=== PATIENT | female | born 1930 | race Caucasian/White ===

== ENCOUNTER 2019-02-24 05:47 | Observation (INO) | payer MEDICARE ==
[~2019-02-24] VITALS: Ht 177.8 cm; Wt 65.5 kg
[2019-02-24] VITALS (14 sets, daily range): BP systolic 95–207; BP diastolic 39–94
[~2019-02-24 05:47] MED LIST: ATOR20TA PO; CALC-793 PO; CARB-86 PO; DONE10TA7 PO; FLEC50TA PO; FLO0.1T PO; LEVO100T PO; MAGN400C PO; MULT-1179 PO; RIVA20TA PO; [UNRECOGNIZED DRUG - CODE] TP
--- NOTE | 2019-02-24 06:11 | NUR ---
Dr. Meyer to bedside.
[2019-02-24 06:12] LABS: BASOPHILS # (AUTO) 0.1 X10'3 (0-0.2); EOSINOPHILS # (AUTO) 0.2 X10'3 (0-0.9); HEMATOCRIT 37.1 % (35.0-45.0); LYMPHOCYTES # (AUTO) 1.2 X10'3 (1.1-4.8); LYMPHOCYTES % (AUTO) 22.2 % (21-51); MEAN CORPUSCULAR HEMOGLOBIN 33.9 PG (27.0-31.0); MEAN CORPUSCULAR HGB CONC 35.2 g/dL (33.0-36.5); MEAN CORPUSCULAR VOLUME 96.4 FL (78-98); MEAN PLATELET VOLUME 7.4 FL (7.4-10.4); MONOCYTES # (AUTO) 0.4 X10'3 (0-0.9); MONOCYTES % (AUTO) 7.8 % (2-12); NEUTROPHILS # (AUTO) 3.5 X10'3 (1.8-7.7); PLATELET COUNT 156 X10'3 (140-440); RED BLOOD COUNT 3.85 X10'6 (4.20-5.60); RED CELL DISTRIBUTION WIDTH 12.6 % (11.5-14.5); WHITE BLOOD COUNT 5.3 X10'3 (4.5-11.0)
[2019-02-24] MEDS ORDERED: nitroGLYCERIN 0.4mg SUBLingual tab SL PRN ×3 (06:15→07:30)
[2019-02-24 06:22] LABS: ALANINE AMINOTRANSFERASE 11 U/L (12-78); ALBUMIN 3.6 G/DL (3.4-5.0); ALKALINE PHOSPHATASE 92 IU/L (46-116); ANION GAP 7 (8-16); ASPARTATE AMINO TRANSFERASE 15 U/L (10-37); BILIRUBIN,TOTAL 0.7 MG/DL (0.1-1.0); BLOOD UREA NITROGEN 15 MG/DL (7-18); BUN/CREATININE RATIO 18.3 (6.6-38.0); CALCIUM 9.2 MG/DL (8.5-10.1); CHLORIDE 107 MMOL/L (99-107); CREATININE 0.82 MG/DL (0.40-0.90); GLUCOSE 92 MG/DL (70-104); PARTIAL THROMBOPLASTIN TIME 37 SECONDS (22-32); POTASSIUM 3.7 MMOL/L (3.5-5.1); SODIUM 144 MMOL/L (135-145); TOTAL CARBON DIOXIDE 30.2 MMOL/L (24-32); TOTAL PROTEIN 7.1 G/DL (6.4-8.2); eGFR 66 ML/MIN
[2019-02-24] MEDS ORDERED: MELA3TAB64 PO (06:22)
[2019-02-24] MEDS ORDERED: CARB1TAB23 PO ×2 (06:34→06:37)
[2019-02-24] MEDS ORDERED: PRAM0.5T3 PO (06:40)
[2019-02-24] MEDS ORDERED: carbidoba-levodopa 25-100mg tablet PO SCH ×2 (06:55→21:00)
[2019-02-24] MEDS ORDERED: metoprolol tartrate 1mg/ml inj IV PRN (07:30)
[2019-02-24] MEDS ORDERED: acetaminophen 325mg tablet PO PRN ×2 (07:30)
[2019-02-24] MEDS ORDERED: pramipexole 0.25mg tablet PO SCH ×3 (07:30→10:09)
[2019-02-24] MEDS ORDERED: magnesium hydroxide 30ml (MOM) UD suspension PO PRN (07:30)
[2019-02-24] MEDS ORDERED: ondansetron/PF 4mg/2ml inj IV PRN (07:30)
[2019-02-24] MEDS ORDERED: mag hydrox/Alum hydrox/simeth 30ml oral suspension PO PRN (07:30)
[2019-02-24] MEDS ORDERED: morphine 2 MG/ML inj. syringe IV PRN ×2 (07:30)
[2019-02-24] MEDS ORDERED: HYDROcodone/acetaminophen 5mg/325mg tablet PO PRN (07:30)
[2019-02-24] MEDS ORDERED: regadenoson 0.4mg/5ml syringe IV ONE ×2 (07:30→14:40)
--- NOTE | 2019-02-24 07:31 | NUR ---
ADMIN PT'S CARBIDOPA/LEVODOPA ORDERED. PT STATES THAT SHE IS NOW TAKING TWO DOSES. CALLED HER FACILITY AND LEFT A MESSAGE FOR KIMI TO CALL BACK FOR CLARIFICATION AT [phone] [facility].
[2019-02-24 07:48] LABS: D-DIMER < 0.19 MG/L FEU (0-0.50)
[2019-02-24] MEDS ORDERED: aspirin 81mg tablet.DR PO SCH (08:00)
[2019-02-24] MEDS ORDERED: levoTHYROXINE 100mcg tablet PO SCH (08:00)
[2019-02-24] MEDS ORDERED: fludrocortisone acetate 0.1mg tablet PO SCH ×2 (08:00→10:21)
--- NOTE | 2019-02-24 08:13 | NUR ---
ASSIST PT TO BSC. CHANGE DRYFLO PAD ON BED. ASSIST PT BACK TO THE [facility]. PT'S SON MELISSA AT BEDSIDE. REVIEW MED CHANGES WITH REP FROM [facility].
[2019-02-24 08:16] LABS: HEMOGLOBIN A1C 5.5 % (4.5-6.2)
[2019-02-24] MEDS ORDERED: RIVA15TA PO (08:36)
--- NOTE | 2019-02-24 09:31 | NUR ---
PT INJECTED BY TECH FOR STRESS TEST. WILL BE BACK IN AN HOUR TO GET HER. KEEP PT NPO.
[2019-02-24] MEDS ORDERED: CARB1TAB PO (10:01)
[2019-02-24] MEDS ORDERED: CARB1TAB42 PO (10:03)
[2019-02-24] MEDS ORDERED: carbidopa/levodopa 50/200mg CR tablet PO SCH (11:57)
--- NOTE | 2019-02-24 13:46 | NUR ---
Paged Nuclear Medicine dept to relay patient's request to get the stress test done. BP 129/56, heart rate of 75 when checked
[2019-02-24] MEDS ORDERED: aminophylline inj. 10 ML IV ONE (14:32)
[2019-02-24] MEDS: aminophylline 250mg/10ml inj. IV PRN ×2 (14:33→14:51)
--- NOTE | 2019-02-24 17:24 | NUR ---
Patient stated that his son will be coming to pick her up around 06:00pm to transport her back to [facility]
--- NOTE | 2019-02-24 17:44 | NUR ---
Discharge instructions given to patient, patient verbalized understanding of all instructions made. Discontinued peripheral IV catheter, pressure dressing applied. Patient awaiting for her son to come and pick her up
--- NOTE | 2019-02-24 18:21 | NUR ---
Hands off report given to Eliceo FLORES to complete the discharge process. Patient's son not here yet at this time
--- NOTE | 2019-02-24 18:40 | NUR ---
Patient discharged home. Assisted in wheelchair to entrance where she was picked up by her son. All belongings went with her, education materials given, ID band taken off, IV out, stable upon discharge.
[2019-02-24] MEDS ORDERED: Melatonin 3mg tablet PO SCH (21:00)
[2019-02-24] MEDS ORDERED: donepezil 5mg tablet PO SCH (21:00)
[2019-02-24] MEDS ORDERED: atorvastatin 20mg tablet PO SCH (21:00)
[2019-02-24] MEDS ORDERED: rivaroxaban 15mg tablet PO SCH (21:00)
== END 2019-02-24 18:40 | disposition home or self-care (01) ==
LOC: ER 05:48 → SUR 3N 10:12
PROVIDERS: ADMIT Internal Medicine; ATTEND Internal Medicine
DX: R07.2 Precordial pain (principal); G20 Parkinson's disease; I25.10 Atherosclerotic heart disease of native coronary artery without angina pectoris; I48.0 Paroxysmal atrial fibrillation; E78.5 Hyperlipidemia, unspecified; E03.9 Hypothyroidism, unspecified; Z90.710 Acquired absence of both cervix and uterus; Z79.01 Long term (current) use of anticoagulants; Z79.4 Long term (current) use of insulin; Z79.899 Other long term (current) drug therapy; Z86.73 Personal history of transient ischemic attack (TIA), and cerebral infarction without residual deficits
CPT/HCPCS: 36415; 71045; 78452; 80053; 83036; 84484; 85025; 85379; 85610; 85730; 87081; 93005; 93017; 96374; 99284; A9500; G0378; J0280; J2785